=== PATIENT | male | born 1995 | race Caucasian/White ===

== ENCOUNTER 2021-05-21 20:37 | Inpatient (IN) | payer OTHER, SELFPAY ==
[2021-05-21 20:38] VITALS: BP 157/100; PULSE 100; RESP 16; TEMP 36.4; O2SAT 100
[2021-05-21 21:19] VITALS: BP 129/74; PULSE 103; RESP 25
--- NOTE | 2021-05-21 21:59 | PCM.HP.STD ---
HPI - General General Date of Admission: 05/21/21 Date of Service: 05/21/21 Chief Complaint: Request for Fentanyl detoxification. HPI Narrative The patient is a 26 y/o M w/ PMHx: Hx EtOH Abuse (sober x 8-10 months), Polysubstance abuse following w/ [facility] on chronic methadone regimen, Tobacco Vaping usage, Anxiety and Depression who presents to the [facility] ED on 05/21/21 w/ strong family and girlfriend urge to quick substance abuse and seek out care/evaluation prompting patient to go to the ED for evaluation. He does note that he normally uses $100/fentanyl per day. He notes that when he starts to withdrawal normally he has onset of abdominal cramping, diffuse body aches, nausea, fatigue, restless leg, sweating, yawning. He notes using just prior to ED presentation and upon arrival is fatigued and sluggish. Work-up in the ED included T 97.5, heart rate 103, BP initially 157/100 with most recent repeat 129/74, respiratory rate 25, #room air, pending CBC, CMP, urine drug screen upon evaluation. [facility] Medical History (Updated 05/21/21 @ 22:[address] Oriana Montanez MD) Anxiety Depression History of alcohol abuse Opiate abuse, continuous Smoker Substance abuse Home Medications NK 05/21/21 [History Last Taken Unknown] Allergy/AdvReac Type Severity Reaction Status Date / Time No Known Allergies Allergy Verified 05/21/21 20:46 Family History (Updated 05/21/21 @ 22:[address] Oriana Montanez MD) Mother Hypertension Father Hypertension Surgical History (Updated 05/21/21 @ 22:[address] Oriana Montanez MD) No history of previous surgery Social History (Updated 05/21/21 @ 22:[address] Oriana Montanez MD) housing: other details: Lives w/ his girlfriend who has history of substance abuse (clean x 5 yrs). Smoking Status: Current every day smoker tobacco type: e-cigarettes Smokeless tobacco user: other alcohol intake: former details: Sober x 8-10 months. substance use type: opiates ROS ROS Narrative Admission Review of Systems: CONSTITUTIONAL: No weight loss, fever, chills, + weakness or fatigue. HEENT: Eyes: No visual loss, blurred vision, double vision or yellow sclerae. Ears, Nose, Throat: No hearing loss, sneezing, congestion, runny nose or sore throat. SKIN: No rash or itching, lesions, wounds. CARDIOVASCULAR: No chest pain, chest pressure or chest discomfort, palpitations, edema, orthopnea, syncopal events. RESPIRATORY: No shortness of breath, cough or sputum, wheezing, hemoptysis. GASTROINTESTINAL: + anorexia, nausea, No vomiting or diarrhea, abdominal pain, melena, BRBPR. GENITOURINARY: No dysuria, frequency, urgency or retention. NEUROLOGICAL: No headache, dizziness, syncope, paralysis, ataxia, numbness or tingling in the extremities, focal weakness, change in bowel or bladder control, seizure. MUSCULOSKELETAL: + muscle, back pain, joint pain or stiffness. HEMATOLOGIC: No anemia, bleeding or bruising. LYMPHATICS: No enlarged nodes. No history of splenectomy. PSYCHIATRIC: + history of depression or anxiety. ENDOCRINOLOGIC: No reports of sweating, cold or heat intolerance. No polyuria or polydipsia. ALLERGIES: No history of asthma, hives, eczema or rhinitis. Vital Signs Vital Signs Vital Signs: 05/21/21 20:38 05/21/21 21:19 Temperature 97.5 F L Temperature Source Temporal Pulse Rate 100 103 H Respiratory Rate 16 25 H Blood Pressure 157/100 H 129/74 H Blood Pressure Mean 119 92 Pulse Ox 100 Oxygen Delivery Method Room Air Room Air Weight Weight: 136 lb Body Mass Index (BMI) 20.0 Physical Exam Narrative Physical Examination: General: Awakens to stimuli, alert when having discussions but will quickly fall back asleep, oriented x 3 and cooperative, seated upright in the ED bed, fatigued, sluggish, awakens to stimuli. Skin: Normal color, normal turgor, no icterus, no cyanosis. HEENT: AT/NC, EOMI, PERRLA, mildly dry MM, no carotid bruits or JVD noted. Lungs: Diminished, greater bases, appropriate effort, no rales, ronchi or wheezing. Heart: Mildly tachycardic with regular rhythm; no gallop, rub audible. Abdomen: Soft, overweight, NTTP, ND, distant normal BS, no HSM. Extremities: No cyanosis, clubbing, or edema. Neurological: Patient awakens to stimuli, alert with discussions but does fall back asleep, oriented as noted, cognitive function decreased from baseline intact given recent substance use prior to arrival; pupils equally reactive to light and accommodation, cranial nerves II-XII grossly normal, moving all 4 extremities, no focal deficits, strength difficult to assess given fatigue, moderately to severely global decrease currently. Psychiatric: Affect appears flat, lethargic, fatigued, no acute evidence of depressive or anxiety feelings. Results Lab / Micro Data Result Diagrams: 05/21/21 21:46 05/21/21 21:46 Assessment & Plan Assessment/Plan (1) Desire for detoxification: PLAN: The patient is a 26 y/o M w/ PMHx: Hx EtOH Abuse (sober x 8-10 months), Polysubstance abuse following w/ [facility] on chronic methadone regimen, Tobacco Vaping usage, Anxiety and Depression who presents to the [facility] ED on 05/21/21 w/ strong family and girlfriend urge to quick substance abuse and seek out care/evaluation prompting patient to go to the ED for evaluation. #1. Acute Opiate Withdrawal: Will admit to [facility], routine labs including CBC, CMP, urine for drug screen pending upon ED evaluation, will initiate and continue on protocol with tapering course of Subutex, as needed tylenol, ibuprofen, bowel regimen, gabapentin, Bentyl, Vistaril, methocarbamol, clonidine, PRN nightly trazodone for insomnia, IV fluids, IV antiemetics. Once patient clinically improved and completion of taper nearing will plan consultation with case management for transition to next level of rehabilitation care. #2. Polysubstance Abuse: Patient currently not candidate for hep C treatment currently as needs to be clean, sober x 6 months, documented attendance NA or AA meetings, counseling and ongoing negative drug screens. Once appropriate GI, ID to initiate. HIV, hepatitis panel to assess for co-infection pending. Encouraged PCP establishment and follow-up. #3. History of alcohol abuse: Patient notes he has been sober for at least 8 to 10 months, encouraged continued sobriety. #4. Tobacco Abuse: Encouraged cessation, inpatient consultation per RT, NR if desired. #5. Anxiety and depression: Not on the current regimen, would benefit from consideration counseling and potential medications if attributing to his acute presentation with opiate and substance abuse. #6. DVT prophylaxis: Low risk, encourage ambulation. Charges/Coding Visit Charges Inpatient E&M: 21294 Init Hosp L2
--- NOTE | 2021-05-21 22:07 | CM.ED ---
Social Work Telephone call to [facility]. Updated on patient admission to [facility] program. Kamaljit Verdin MSW, RAIZA
[2021-05-21 22:09] LABS: Absolute Lymphocyte Count 2.39 X10^3/uL (0.83-4.51); Absolute Neutrophil Count 6.2 X10^3/uL (2.0-7.7); Alcohol, Blood (Medical)-Serum < 3.0 mg/dL; Basophil# 0.06 X10^3/uL; Basophil% 0.6 % (0-1); Eosinophil# 0.85 X10^3/uL; Eosinophils% 7.9 % (0-5); Hematocrit 34.6 % (40-54); Hemoglobin 11.6 g/dL (13.0-16.5); Lymphocyte # 2.39 X10^3/ul (0.83-4.51); Lymphocyte % 22.3 % (19-41); Mean Corp Hgb Conc 33.5 g/dL (32-36); Mean Corpuscular Hgb 29.9 pg (27.0-32.0); Mean Corpuscular Volume 89.2 fL (80-94); Monocyte# 1.15 X10^3/uL; Monocyte% 10.7 % (0-10); NRBC Flagged by Analyzer 0 % (0-5); Neutrophil # 6.19 X10^3/uL (2.7-7.7); Neutrophil % 57.9 % (47-70); Platelet Count 303 K/mm3 (150-450); RBC Distribution Width CV 13.2 % (11.6-14.6); RBC Distribution Width SD 42.7 fl (35.1-43.9); Red Blood Count 3.88 M/mm3 (4.6-6.2); White Blood Count 10.7 K/mm3 (4.4-11.0)
[2021-05-21 22:13] LABS: ALB/GLOB Ratio 0.9 RATIO (0.9-2.4); AST(SGOT) 19 U/L (15-37); Alanine Aminotransfer ALT/SGPT 46 U/L (16-61); Albumin, Serum 3.1 g/dL (3.2-5.0); Alkaline Phosphatase 70 U/L (45-117); Anion Gap 7 (5-15); BUN 12 mg/dL (7-18); BUN/Creat Ratio 14.1 RATIO (10-20); Calcium,Total 8.3 mg/dL (8.5-10.1); Chloride 107 mmol/L (98-107); Creatinine, Serum 0.85 mg/dL (0.70-1.30); EST Glomerular Filtration Rate 117 mL/min (>60); Est Glom Filt Rate - Afr Amer 142 mL/min (>60); Estimated Creatinine Clearance 116.93 ml/min; Globulin 3.3 g/dL (2.2-4.2); Glucose 123 mg/dL (74-106); Potassium 3.8 mmol/L (3.5-5.1); Protein, Total 6.4 g/dL (6.4-8.2); Sodium Level 139 mmol/L (136-145)
[2021-05-21 22:53] VITALS: BP 124/77; PULSE 99; RESP 16; TEMP 37.1; O2SAT 98
[2021-05-21 23:10] LABS: HIV - WCH Non-Reactive (Nonreactive)
--- NOTE | 2021-05-21 23:15 | ED.RN ---
pt has a fear of needles. Iv was placed for patient comfort and continuation of medical treatment. [facility] nurse called and informed to please pull IV after required blood draw from the floor. carlyn holman rn [id number]
[2021-05-21 23:22] VITALS: BMI 37.9
[2021-05-21 23:30] VITALS: BP 122/71; PULSE 98; RESP 18; TEMP 36.9; O2SAT 99
[2021-05-21] MEDS: Lactated Ringers 1,000 ML 125 ML IV (23:54)
[2021-05-21] MEDS: 0.9% Saline Lock 10 ML Syringe IV (23:55)
--- NOTE | 2021-05-22 00:29 | EDS_ITS ---
HPI History of Present Illness Chief Complaint: Substance Abuse Informant: patient Onset/Context/Timing Onset: Today Context: Gradual Onset Timing: Continuous Worsened by: Nothing Relieved by: Nothing Associated Symptoms Associated Symptoms: Negative for vomiting*, diarrhea*, fever*, rash*, seizure, tremor, palpatations, suicidal ideation and homicidal ideation Narrative Narrative: Patient presents requesting detox from fentanyl. Patient states he snorts fentanyl. Patient states his last use was approximately 2-1/2 hours prior to arrival. Patient states he normally uses 1 g/day. Patient states he has never been through detox in the past. Patient denies any suicidal or homicidal ideations. Patient denies any nausea, vomiting, diarrhea. Patient is somewhat somnolent on examination but is able to hold a conversation and answer questions appropriately. [facility] Medical History Anxiety Depression History of alcohol abuse Opiate abuse, continuous Smoker Substance abuse Home Medications NK 05/21/21 [History Last Taken Unknown] Allergy/AdvReac Type Severity Reaction Status Date / Time No Known Allergies Allergy Verified 05/21/21 20:46 Family History (Updated 05/21/21 @ 22:[address] Oriana Montanez MD) Mother Hypertension Father Hypertension Surgical History No history of previous surgery Social History housing: other details: Lives w/ his girlfriend who has history of substance abuse (clean x 5 yrs). Smoking Status: Current every day smoker tobacco type: e-cigarettes Smokeless tobacco user: other alcohol intake: former details: Sober x 8-10 months. substance use type: opiates ROS ROS ED Constitutional Constitutional ED: Denies chills or fever(s) Eyes Eyes: Denies blurry vision or change in vision ENT ENT ED: Denies rhinorrhea or sore throat Cardiovascular Cardiovascular: Denies chest pain or palpitations Respiratory/Chest Respiratory/Chest: Denies cough or dyspnea Gastrointestinal Gastrointestinal: Denies nausea or vomiting Genitourinary Genitourinary ED: Denies dysuria or hematuria Musculoskeletal Musculoskeletal: Reports back pain; Denies neck pain Integumentary Denies abscess or rash Neurologic Neurologic: Denies headache(s) or weakness Allergic/Immunologic Allergic/Immunologic ED: Denies mouth swelling or urticaria EXAM Physical Exam Const Vital Signs: 05/21/21 20:38 05/21/21 21:19 Temperature 97.5 F L Temperature Source Temporal Pulse Rate 100 103 H Respiratory Rate 16 25 H Blood Pressure 157/100 H 129/74 H Blood Pressure Mean 119 92 Pulse Ox 100 Oxygen Delivery Method Room Air Room Air Positive well nourished and well developed General Appearance ED: well developed HEENT Reports moist mucous membranes Neck supple and no JVD Resp normal respiratory effort and clear to auscultation bilaterally Cardio regular rate, regular rhythm and no murmurs GI normal to inspection, nondistended, normoactive bowel sounds and non-tender Palpation: soft Extremity normal to inspection General Extremety ED: Negative for edema or tenderness General Extremity: Negative for edema Neuro oriented x3, CN's II-XII intact bilaterally and no sensory deficits noted Sensorium / Orientation: alert Motor Exam: strength 5/5 throughout Psych mental status grossly normal Skin no rashes or lesions noted MDM MDM MDM Narrative Medical decision making narrative: CBC and comprehensive metabolic profile were obtained and were essentially within normal limits. Serum alcohol level was less than 3. Urine tox screen was ordered and is pending. Case was discussed with the hospitalist. She will admit the patient to her service. Patient understood and was agreeable with the plan. All questions were answered. Treatment and Re-Evaluation Vital Sign Attestation:: Vital signs were reviewed prior to admission. They are stable. Discharge Plan Dx/Rx/DC Orders Clinical Impression: Opiate withdrawal, Desire for detoxification Disposition Disposition: Acute Care Hospital [facility] Discharge Date/Time: 05/21/21 23:17
[2021-05-22 02:55] VITALS: BP 152/88; PULSE 85; RESP 16; TEMP 36.6; O2SAT 97
[2021-05-22 03:59] LABS: Amphetamine Urine VISTA NEGATIVE (<1000 ng/mL); Barbiturate Urine VISTA NEGATIVE (< 200 ng/mL); Benzodiazepine Urine VISTA POSITIVE (< 200 ng/mL); Cocaine Urine VISTA NEGATIVE (< 300 ng/mL); Ecstacy Urine VISTA NEGATIVE (< 500 ng/mL); Methadone Urine VISTA POSITIVE (< 300 ng/mL); PCP Urine VISTA NEGATIVE (< 25 ng/mL); THC Urine VISTA NEGATIVE (< 50 ng/mL); Vista UDS pH Range 5
[2021-05-22 07:00] VITALS: BP 145/67; PULSE 86; RESP 17; TEMP 36.6; O2SAT 96
--- NOTE | 2021-05-22 07:25 | PCM.PN.HOSP ---
Subjective Subjective 26-year-old gentleman with history of polysubstance abuse admitted with acute opioid withdrawal Objective Data Objective Data Vital Signs: Vital Signs Temp Pulse Resp BP Pulse Ox 98 F 86 17 145/67 H 96 05/22/21 07:00 05/22/21 07:00 05/22/21 07:00 05/22/21 07:00 05/22/21 07:00 Oxygen Delivery Method Room Air Weight: 116.5 kg Body Mass Index (BMI) 37.9 Lab / Micro Data Result Diagrams: 05/21/21 21:46 05/21/21 21:46 Labs: Laboratory Results - last 24 hr 05/21/21 21:43: HIV 1&2 Antibody Non-Reactive 05/21/21 21:46: WBC 10.7, RBC 3.88 L, Hgb 11.6 L, Hct 34.6 L, MCV 89.2, MCH 29.9, MCHC 33.5, RDW Std Deviation 42.7, RDW Coeff of Idania 13.2, Plt Count 303, MPV 10.0, Immature Gran % (Auto) 0.600, Neut % (Auto) 57.9, Lymph % (Auto) 22.3, [place] % (Auto) 10.7 H, Eos % (Auto) 7.9 H, Baso % (Auto) 0.6, Absolute Neuts (auto) 6.2, Absolute Lymphs (auto) 2.39, Nucleated RBC % 0 05/21/21 21:46: Sodium 139, Potassium 3.8, Chloride 107, Carbon Dioxide 25.0, Anion Gap 7, BUN 12, Creatinine 0.85, Estim Creat Clear Calc 116.93, Est GFR (MDRD) Af Amer 142, Est GFR (MDRD) Non-Af 117, BUN/Creatinine Ratio 14.1, Glucose 123 H, Calcium 8.3 L, Total Bilirubin 0.30, AST 19, ALT 46, Alkaline Phosphatase 70, Total Protein 6.4, Albumin 3.1 L, Globulin 3.3, Albumin/Globulin Ratio 0.9 05/21/21 21:46: Ethyl Alcohol < 3.0 05/22/21 03:10: Urine Opiates Screen POSITIVE H, Urine Methadone Screen POSITIVE H, Ur Barbiturates Screen NEGATIVE, Ur Phencyclidine Scrn NEGATIVE, Ur Amphetamines Screen NEGATIVE, U Methamphetamin-MDMA NEGATIVE, U Benzodiazepines Scrn POSITIVE H, Urine Cocaine Screen NEGATIVE, U Cannabinoids Screen NEGATIVE, Ur Drug Screen Comment Physical Exam Narrative GENERAL: cooperative HEENT: Atraumatic; EYES; Anicteric, Normal Conjunctiva NECK; supple, normal thyroid, RESPIRATORY: Diminished to auscultation CARDIOVASCULAR: Regular S1 S2, GI: soft, normoactive bowel sounds, : No Renal angle tenderness; EXTREMITIES: No edema, no clubbing, MUSCULOSKELETAL: no muscle wasting NEURO: Awake; no lateralizing signs. SKIN: No Rash PSYCH; Flat affect Assessment & Plan Assessment/Plan (1) Desire for detoxification: PLAN: 26-year-old gentleman with history of polysubstance abuse admitted with acute opioid withdrawal 1. Acute opiate withdrawal ?Patient has been admitted to a regular nursing floor where he is currently being managed with Subutex taper 2. History of chronic alcohol abuse ?Patient has apparently remained sober for 8 to 10 months 3. Polysubstance abuse ?Counseled on cessation 4. Tobacco dependence - Counseled on cessation, offered nicotine patch for tobacco cravings 5. DVT prophylaxis ?Low risk Charges/Coding Visit Charges Inpatient E&M: 41042 Subs Hosp L2
[2021-05-22] MEDS: 0.9% Saline Lock 10 ML Syringe IV (07:58)
[2021-05-22 14:13] VITALS: BP 129/82; PULSE 96; RESP 18; TEMP 36.7; O2SAT 97
--- NOTE | 2021-05-22 18:10 | ADDICTION ---
This public relations writer met with PT to conduct ASAM, MSE, DUDIT assessments and to plan for d/c. PT A+Ox4 and participated actively. All assessments completed, faxed to [facility] and placed in PT's chart. PT plans to f/u with individual counselor at [facility] in [place] for follow-up counseling services. PT did not indicate a need for transportation post d/c from [facility].
[2021-05-22 18:32] VITALS: BP 98/63; PULSE 95; RESP 16; TEMP 36.4; O2SAT 97
[2021-05-22 22:56] VITALS: BP 99/42; PULSE 89; RESP 16; TEMP 36.8; O2SAT 98
[2021-05-23 04:45] VITALS: BP 104/57; PULSE 84; RESP 18; TEMP 36.7; O2SAT 98
--- NOTE | 2021-05-23 07:57 | PCM.PN.HOSP ---
Subjective Subjective Patient seen has not required any medication. He did request to be discharged. Objective Data Objective Data Vital Signs: Vital Signs Temp Pulse Resp BP Pulse Ox 98.0 F 84 18 104/57 L 98 05/23/21 04:45 05/23/21 04:45 05/23/21 04:45 05/23/21 04:45 05/23/21 04:45 Oxygen Delivery Method Room Air Weight: 116.5 kg Body Mass Index (BMI) 37.9 Intake & Output: Intake and Output for Last 24 Hours 05/21/21 05/22/21 05/23/21 23:59 23:59 23:59 Intake Total 2400 / 2400 Balance 2400 / 2400 Lab / Micro Data Result Diagrams: 05/21/21 21:46 05/21/21 21:46 Physical Exam Narrative GENERAL: cooperative HEENT: Atraumatic; EYES; Anicteric, Normal Conjunctiva NECK; supple, normal thyroid, RESPIRATORY: Diminished to auscultation CARDIOVASCULAR: Regular S1 S2, GI: soft, normoactive bowel sounds, : No Renal angle tenderness; EXTREMITIES: No edema, no clubbing, MUSCULOSKELETAL: no muscle wasting NEURO: Awake; no lateralizing signs. SKIN: No Rash PSYCH; Flat affect Assessment & Plan Assessment/Plan (1) Desire for detoxification: PLAN: 26-year-old gentleman with history of polysubstance abuse admitted with acute opioid withdrawal 1. Acute opiate withdrawal ?Patient has been admitted to a regular nursing floor where he is currently being managed with Subutex taper 2. History of chronic alcohol abuse ?Patient has apparently remained sober for 8 to 10 months 3. Polysubstance abuse ?Counseled on cessation 4. Tobacco dependence - Counseled on cessation, offered nicotine patch for tobacco cravings 5. DVT prophylaxis ?Low risk Charges/Coding Visit Charges Inpatient E&M: 53448 Subs Hosp L2
[2021-05-23 08:15] VITALS: BP 99/59; PULSE 76; RESP 16; TEMP 36.7; O2SAT 96
--- NOTE | 2021-05-23 09:32 | PCM.DC.SUM ---
Providers Date of Admission: 05/21/21 Primary Care Physician: Alejandra Primary Care Phys Reason For Visit: ACUTE OPIATE WITHDRAWAL Diagnosis Discharge Diagnosis (1) Desire for detoxification: Status: Acute Medications at Discharge Home Medications NK 05/21/21 Hospital Course Summary of Care Provided Minutes Spent on Discharge: 35 Hospital Course: 26-year-old gentleman with history of polysubstance abuse admitted with acute opioid withdrawal 1. Acute opiate withdrawal ?Patient has been admitted to a regular nursing floor where Subutex taper was ordered. Patient however declined a Subutex taper. He did request to be discharged home 2 days after his admission. Patient to follow-up with [facility] counseling services as outpatient 2. History of chronic alcohol abuse ?Patient has apparently remained sober for 8 to 10 months 3. Polysubstance abuse ?Counseled on cessation 4. Tobacco dependence - Counseled on cessation, offered nicotine patch for tobacco cravings 5. DVT prophylaxis ?Low risk Physical Exam Narrative GENERAL: cooperative HEENT: Atraumatic; EYES; Anicteric, Normal Conjunctiva NECK; supple, normal thyroid, RESPIRATORY: Diminished to auscultation CARDIOVASCULAR: Regular S1 S2, GI: soft, normoactive bowel sounds, : No Renal angle tenderness; EXTREMITIES: No edema, no clubbing, MUSCULOSKELETAL: no muscle wasting NEURO: Awake; no lateralizing signs. SKIN: No Rash PSYCH; Flat affect Weight / BMI Weight Weight: 116.5 kg Body Mass Index (BMI) 37.9 ABG / Lab / Microbiology Data Result Diagrams: 05/21/21 21:46 05/21/21 21:46 D/C Instructions Discharge Diet: No restrictions Discharge Activity: Return to Normal Activity Call your doctor if you observe: Fever of 101 or Higher, Shortness of breath, Fainting spells and Chest pain Meaningful Use Info Meaningful Use Diagnoses (Choose all that apply): None applicable Discharge Plan Admission Admit Date/Time: 05/21/21 21:42 Attending Provider: Sharad Hardin Primary Care Provider: Care Physician,No Primary Discharge Orders/Prescriptions Prescriptions: No Action NK RF: 0 Referrals / Follow Up: Care Physician,No Primary [Primary Care Provider] - Disposition Disposition (needs filled in before D/C Order can be placed): Home, Self Care Charges/Coding Visit Charges Inpatient E&M: 45644 Disch Hosp
[2021-05-23 10:07] LABS: HEPATITIS B SURFACE AG Negative (Negative); Hepatitis B Core Ab Total Negative (Negative); Hepatitis C Ab <0.1 s/co ratio (0.0-0.9)
[2021-05-23 10:49] LABS: Hep B Surface Antibodies Non Reactive (.)
== END 2021-05-23 11:46 | disposition home or self-care (01) | DRG 897 ==
LOC: ED 21:58 → MS3 21:59
PROVIDERS: Admitting Provider Family Medicine; Emergency Provider Emergency Medicine; Visit Provider Internal Medicine
DX: F11.23 Opioid dependence with withdrawal (principal); F10.21 Alcohol dependence, in remission; F12.10 Cannabis abuse, uncomplicated; F17.290 Nicotine dependence, other tobacco product, uncomplicated; F41.9 Anxiety disorder, unspecified; F32.A Depression, unspecified
CPT/HCPCS: 36415; 80053; 80307; 82077; 85025; 86703; 86704; 86705; 86706; 86707; 86803; 87340; 87350; 97802; 99284; 99406; J7120; A4216